=== PATIENT | female | born 1990 | race Two or more races ===

== ENCOUNTER 2019-02-19 15:13 | Inpatient (IN) | payer SELFPAY ==
[~2019-02-19] VITALS: Ht 162.6 cm; Wt 68.0 kg
[2019-02-19] MEDS ORDERED: NALBUPHINE 10 MG/ML AMPUL. IV PRN (15:45)
[2019-02-19] MEDS ORDERED: LIDOCAINE 1% PF 30 ML VIAL. INJ PRN (15:45)
[2019-02-19] MEDS ORDERED: fentaNYL PF VIAL 100 MCG/2 ML VIAL IV PRN ×2 (15:45)
[2019-02-19] MEDS ORDERED: TERBUTALINE 1 MG/ML VIAL. SQ PRN (15:45)
[2019-02-19] MEDS ORDERED: BUTORPHANOL 2 MG/ML VIAL. IV PRN ×2 (15:45)
[2019-02-19] MEDS ORDERED: 0.9 % SODIUM CHLORIDE 10 ML DISP.SYRIN. IV PRN (15:45)
[2019-02-19] MEDS ORDERED: OXYTOCIN 30 UNIT/500 ML PREMIX 500 ML IV PRN ×2 (15:45)
[2019-02-19 15:59] LABS: BILIRUBIN,URINE NEGATIVE (NEG); CLARITY,URINE TURBID; COLOR,URINE YELLOW; NITRITE,URINE NEGATIVE (NEG); PROTEIN,URINE 30 mg/dL (NEG-TRACE)
[2019-02-19 16:17] LABS: BACTERIA,URINE MANY /HPF (0-FEW); RBC,URINE RARE /HPF (0-2); SQUAMOUS EPITHELIAL CELL,UR MANY /LPF; WBC,URINE 20-40 /HPF (0-4)
[2019-02-19] MEDS: IV RINGERS,LACTATED 1000ML 1,000 ML IV SCH ×2 (16:23→20:28)
[2019-02-19 16:24] VITALS: BP 103/63
[2019-02-19 16:32] LABS: BASO % 0 % (0-3); EOS % 0 % (0-3); HEMATOCRIT 37.6 % (36.0-47.0); HEMOGLOBIN 12.9 g/dL (12.0-15.5); LYMPH # 2.3 x10^3/uL (1.0-4.8); LYMPH % 17 % (24-48); MEAN CORPUSCULAR HEMOGLOBIN 30 pg (25-35); MEAN CORPUSCULAR HGB CONC 34 g/dL (31-37); MEAN CORPUSCULAR VOLUME 89 fL (79-100); MONO # 0.8 x10^3/uL (0.0-1.1); MONO % 6 % (0-9); NEUT % 76 % (31-73); PLATELET COUNT 322 x10^3/uL (140-400); RED BLOOD COUNT 4.24 x10^6/uL (3.50-5.40); RED CELL DISTRIBUTION WIDTH 13.3 % (11.5-14.5); WHITE BLOOD COUNT 13.2 x10^3/uL (4.0-11.0)
[2019-02-19] MEDS ORDERED: OXYTOCIN PREMIX 30 UNIT/500 ML NS BAG. IV ONE (17:00)
[2019-02-19] MEDS ORDERED: AMPICILLIN SODIUM 2 GM in IV NORMAL SALINE 100ML 100 ML IV ONE (17:00)
[2019-02-19] MEDS: AMPICILLIN SODIUM 1 GM in IV NORMAL SALINE 50ML 50 ML IV SCH (20:27)
[2019-02-20] MEDS: IV RINGERS,LACTATED 1000ML 1,000 ML IV SCH (06:36)
--- NOTE | 2019-02-20 07:13 | RAD ---
Examination: Obstetric ultrasound limited HISTORY: History of position for induction COMPARISON: None available. FINDINGS: Single living intrauterine identified with heart rate of 124 bpm. presentation is vertex Amniotic fluid index is 13.6 cm. Placenta is in the anterior wall. The placental grade is grade 2. The biparietal diameter measures 9.3 cm corresponding to 38 weeks and 1 day. Head circumference measures 34.2 cm corresponding to 39 weeks and 3 days. . Abdominal circumference measures 35.3 cm corresponding to 39 weeks and 2 days. Femur length measures 7.6 cm corresponding to 39 weeks and 2 days. Head circumference to abdominal circumference ratio is 0.9. Estimated weight 3619 g. Cephalic index 77.1. Head circumference to abdominal circumference ratio 0.9. Femur 7.6 cm corresponding to 39 weeks and 2 days. Femur length to head circumference 22.4. Femur length to abdominal circumference 21.7. Gestational age by ultrasound 39 weeks and 0 days with estimated date of delivery by ultrasound 02/27/2019. IMPRESSION: 1. Single living intrauterine with heart rate of 124 bpm. presentation is vertex. Electronically signed by: Chandler Garcia MD (02/20/2019 7:10 AM) [id number]
[2019-02-20] MEDS: AMPICILLIN SODIUM 1 GM in IV NORMAL SALINE 50ML 50 ML IV SCH ×5 (08:16→16:11)
[2019-02-20] MEDS ORDERED: ROPIVacaine 0.2% IN 0.9%NACL PF 40 MG/20 ML DISP.SYRIN. EPID PRN (13:30)
[2019-02-20] MEDS ORDERED: fentaNYL PF VIAL 100 MCG/2 ML VIAL EPI PRN (13:30)
[2019-02-20] MEDS ORDERED: L&D EPIDURAL SYRINGE 50 ML EPID PRN (13:30)
[2019-02-20] MEDS ORDERED: NALOXONE 0.4 MG/ML VIAL. IV PRN (13:30)
[2019-02-20] MEDS ORDERED: ePHEDrine PF IN SALINE 50 MG/10 ML SYRINGE. IV PRN (13:30)
[2019-02-20] MEDS ORDERED: IV RINGERS,LACTATED 1000ML 1,000 ML IV SCH (13:30)
[2019-02-20] MEDS ORDERED: ROPIVacaine 0.2% PF 10 ML VIAL. ONE ×2 (13:33→14:00)
[2019-02-20] MEDS ORDERED: L&D EPIDURAL 50 ML SYRINGE. ONE (14:00)
--- NOTE | 2019-02-20 16:38 | PDOC ---
VAGINAL DELIVERY DATE DATE: 02/20/19 TIME: 16:36 : 2 Para: 1 EDC: Feb 26, 2019 VAGINAL DELIVERY: VTX VACCUM ASSISTED: No PLACENTA: Spontaneous SEX: Male WEIGHT 7/8 Nuchal Cord: Yes, Times 1, Loose Amniotic Fluid: Clear PAIN: Epidural EPISIOTOMY: No EXTENSION: Yes EBL 300cc COMPLICATIONS None CONDITION Stable Signs of Intrauterine Infectio: None Shoulder Dystocia: No DIAGNOSIS WILLEM Flowers MD Feb 20, 2019 16:38
--- NOTE | 2019-02-20 16:44 | PDOC1 ---
OB - History Hx of Present Care: Good Care Ultrasounds: Normal mid trimester US Obstetrical Complications: None Medical Complications: None Past Family/Social History * Past Medical, Surgical, Family and Obstetric Histories reviewed from chart. Blood Type: A+ Rubella: Immune RPR/VDRL: Negative GBS Status: Unknown HBsAG: Negative OB - Chief Complaint & HPI Date of Admission: Date of Admission: Feb 19, 2019 at 15:13 Chief Complaint/History : 2 Para: 1 EDC: Feb 26, 2019 Admission Nurse Assessment Rev: Yes OB - Admission Exam Physical Exam Vitals: VS - Last 72 Hours, by Label Date Time Temp Pulse Resp B/P (MAP) Pulse Ox O2 Delivery O2 Flow Rate FiO2 02/19/19 20:05 20 Room Air 02/19/19 16:24 98.4 98 20 103/63 (76) 98.4 HEENT: Normal, Nasal Mucosa Normal, Oropharynx Normal, Moist Membranes, Fontanelles Normal Heart: Regular Rate Lungs: Clear, Equal Abdomen: Gravid Reflexes: Normal Cervical Dilatation: 3cm Effacement: 50% Station: Ballotable Membranes: Intact Amniotic Fluid: Clear Heart Rate: Normal Accelerations: Accelerations Present Short Term Variability: Present Contractions on Admission: 6-10 Minutes Apart Intensity: Moderate Assessment/Plan Assessment/Plan TIUP Contraction Augmentation ACSVD WILLEM DAVEY MD Feb 20, 2019 16:44
[2019-02-20] MEDS ORDERED: MAGNESIUM HYDROXIDE 2,400 MG/30 ML ORAL.SUSP. PO PRN (16:45)
[2019-02-20] MEDS ORDERED: MAG HYDROX/ALUMINUM HYD/SIMETH 30 ML ORAL.SUSP PO PRN (16:45)
[2019-02-20] MEDS ORDERED: SIMETHICONE 80 MG TAB.CHEW PO PRN (16:45)
[2019-02-20] MEDS ORDERED: IBUPROFEN 400 MG TABLET. PO PRN (16:45)
[2019-02-20] MEDS ORDERED: HYDROCORTISONE 1% TOPICAL OINTMENT 30GM TUBE. TP PRN (16:45)
[2019-02-20] MEDS ORDERED: diphenhydrAMINE HCL 25 MG CAPSULE PO PRN (16:45)
[2019-02-20] MEDS ORDERED: 0.9 % SODIUM CHLORIDE 10 ML DISP.SYRIN. IV PRN (16:45)
[2019-02-20] MEDS ORDERED: BENZOCAINE 20% TOPICAL AEROSOL SPRAY 57GM CAN. TP PRN (16:45)
[2019-02-20] MEDS ORDERED: ACETAMINOPHEN 325 MG TABLET. PO PRN (16:45)
[2019-02-20] MEDS ORDERED: ZOLPIDEM 5 MG TABLET. PO PRN (16:45)
[2019-02-20] MEDS ORDERED: PHENYLEPH/MINERAL OIL/PETROLAT RECTAL OINTMENT 57GM TUBE. RC PRN (16:45)
[2019-02-20] MEDS ORDERED: OXYTOCIN 30 UNIT/500 ML PREMIX 500 ML IV PRN (16:45)
[2019-02-20] MEDS ORDERED: FERROUS SULFATE 325 MG TABLET. PO SCH (17:00)
[2019-02-20 18:40] VITALS: BP 98/62
[2019-02-20 19:14] VITALS: BP 88/60
[2019-02-20] MEDS: IBUPROFEN 400 MG TABLET. PO SCH (22:00)
[2019-02-21 01:20] VITALS: BP 105/62
[2019-02-21] MEDS: IBUPROFEN 400 MG TABLET. PO PRN ×2 (01:27→07:52)
[2019-02-21] MEDS: DOCUSATE SODIUM 100 MG CAPSULE. PO PRN ×3 (01:27→18:07)
[2019-02-21 05:55] VITALS: BP 91/48
[2019-02-21] MEDS: IBUPROFEN 400 MG TABLET. PO SCH ×3 (06:00→22:00)
--- NOTE | 2019-02-21 09:03 | PDOC ---
Provider Note Provider Note Doing well VSS uterus NTTP FU in AM WILLEM DAVEY MD Feb 21, 2019 09:03
[2019-02-21 10:55] VITALS: BP 94/65
[2019-02-21 18:24] VITALS: BP 105/64
[2019-02-21 21:53] VITALS: BP 95/56
[2019-02-22] MEDS: DOCUSATE SODIUM 100 MG CAPSULE. PO PRN (06:01)
[2019-02-22 06:02] VITALS: BP 102/69
[2019-02-22] MEDS: IBUPROFEN 400 MG TABLET. PO PRN (06:02)
[2019-02-22 11:00] VITALS: BP 95/62
--- NOTE | 2019-02-22 14:34 | PDOC3 ---
OB DISCHARGE SUMMARY DATE OF ADMISSION: 02/19/19 DATE OF DISCHARGE: 02/22/19 REASON FOR ADMISSION: Onset of labor PROCEDURES: Ultrasound INTRAPARTUM PROCEDURES: Spontanous Vag Deliv PROCEDURES: None OPERATIONS: None DISCHARGE DIAGNOSIS: Term Delivered DISCHARGE INFORMATION: Activity, Diet HOSPITAL COURSE Unremarkable CONDITION AT DISCHARGE Stable WILLEM DAVEY MD Feb 22, 2019 14:34
[2019-02-22] MEDS ORDERED: HYDR-3164 PO (14:36)
[2019-02-22] MEDS ORDERED: NAPR-514 PO (14:36)
--- NOTE | 2019-02-22 14:56 | NUR ---
Discharge Discharge instructions given to patient at this time, no questions or concerns noted. To follow up with DR Youngblood in 1 week then [facility] in 6 weeks. Robles ambulated off unit with all her belongings and family at her side. Baby secured in car seat.
== END 2019-02-22 15:00 | disposition home or self-care (01) | DRG 807 ==
LOC: 3 SO LND 15:13 → OBSVTOIN 15:13 → 3 NORTH 02-20 18:25
PROVIDERS: ADMIT Specialist; ATTEND Specialist
PROC: 10E0XZZ Delivery of Products of Conception, External Approach (ICD-10-PCS; principal; 2019-02-20)
PROC: 3E0R3BZ Introduction of Anesthetic Agent into Spinal Canal, Percutaneous Approach (ICD-10-PCS; 2019-02-20)
PROC: 00HU33Z Insertion of Infusion Device into Spinal Canal, Percutaneous Approach (ICD-10-PCS; 2019-02-20)
DX: O69.81X0 Labor and delivery complicated by cord around neck, without compression, not applicable or unspecified (principal); Z37.0 Single live birth; Z3A.39 39 weeks gestation of pregnancy; Z91.013 Allergy to seafood
CPT/HCPCS: 36415; 76815; 81001; 85014; 85025; 86592; 86706; 86762; 86850; 86900; 86901; 87086; 87340; 87653; J0290; J2300; J2590; J2795; J7120